=== PATIENT | male | born 1980 | race Caucasian/White ===

== ENCOUNTER 2022-10-15 15:56 | Emergency (ER) | payer MEDICARE, MEDICAID, SELFPAY ==
[2022-10-15 16:04] VITALS: BP 142/85; PULSE 84; RESP 16; TEMP 36.6; O2SAT 98
--- NOTE | 2022-10-15 16:25 | ED.GENADULT ---
HPI - General Adult General Chief complaint: Dental/Oral Stated complaint: Facial Swelling Source: patient Mode of arrival: ambulatory Limitations: no limitations History of Present Illness HPI narrative: Patient presents for evaluation of pain and swelling in the right upper part of his mouth for the last 3 days. He states he has a history of recurrent infections the affected area. He has some throbbing mild pain in the affected area. In the past he has responded favorably to amoxicillin in the past. No fever, chills, nausea, vomiting. He is not diabetic. He smokes half a pack per day. No additional complaints or concerns. Related Data Allergies Allergy/AdvReac Type Severity Reaction Status Date / Time No Known Allergies Allergy Verified 10/15/22 16:09 Review of Systems Review of Systems: CONSTITUTIONAL: Denies fever, chills, or sweats. EYES: Denies visual changes, redness, or discharge. ENT: Reports pain and swelling in right upper portion of his mouth. Denies rhinorrhea, congestion, sore throat, or otalgia. CARDIOVASCULAR: Denies chest pain, palpitations, or edema. RESPIRATORY: Denies cough or dyspnea. GASTROINTESTINAL: Denies abdominal pain, nausea, vomiting, or diarrhea. GENITOURINARY: Denies dysuria or hematuria. SKIN: Denies rash or itching. MUSCULOSKELETAL: Denies back pain, joint pain, or myalgia. NEUROLOGIC: Denies headache, numbness, dizziness, or weakness. PSYCHIATRIC: Denies anxiety or depression. PMFSH Past Medical History Medical History No pertinent past medical history Surgical History Surgical History No pertinent past surgical history Family History Family History Mother Family history non-contributory Social History Social History Smoking packs per day: 0.5 Smoking cigarettes per day: 10.0 Smoking status: Current every day smoker Gender identity (if verbalized by the patient): Male Spiritual care concerns: No Exam Narrative: GENERAL: Well-appearing, well-nourished, and in no acute distress. HEAD: Normocephalic, atraumatic. EYES: PERRLA and EOMI. ENT: Nares clear, no rhinorrhea or epistaxis. Mucous membranes moist. There is significant plaque noted around his teeth. There is an area of swelling in the soft tissues adjacent to tooth # 31. Oropharynx without tonsillar hypertrophy exudate or other lesions. Bilateral TMs pearly uribe nonbulging NECK: Supple. No adenopathy or masses. No carotid bruits or JVD CHEST: Clear to auscultation. No respiratory distress. No wheezes rales or rhonchi HEART: Regular rate and rhythm. No murmur heard. Normal peripheral pulses. ABDOMEN: Soft, nontender, nondistended, normal active bowel sounds. EXTREMITIES: Normal range of motion. No edema. SKIN: Warm, dry, no rash. NEURO: No focal deficits. Alert and oriented x3. PSYCH: Normal mood and affect. Course Course Emergency Course: This is a 42-year-old male who presented for evaluation of swelling and pain adjacent to tooth number 31. He has responded favorably in the past amoxicillin. Will treat with amoxicillin today. Advise he smoke. Ibuprofen for pain and swelling. Follow-up with dentist. Go to the ER for worsening symptoms. Patient in agreement with plan of care Level of Care: Express Care Visit Vital Signs Vital signs: Vital Signs Temperature 36.6 C 10/15/22 16:04 Pulse Rate 84 10/15/22 16:04 Respiratory Rate 16 10/15/22 16:04 Blood Pressure 142/85 H 10/15/22 16:04 Pulse Oximetry 98 10/15/22 16:04 Oxygen Delivery Room Air 10/15/22 16:04 Temperature 36.6 C 10/15/22 16:04 Pulse Rate 84 10/15/22 16:04 Respiratory Rate 16 10/15/22 16:04 Blood Pressure 142/85 H 10/15/22 16:04 Pulse Oximetry 98 10/15/22 16:
== END 2022-10-15 16:25 | disposition home or self-care (01) ==
PROVIDERS: Emergency Provider Nurse Practitioner; PCP Emergency Medicine
DX: K04.7 Periapical abscess without sinus (principal); F17.210 Nicotine dependence, cigarettes, uncomplicated
CPT/HCPCS: 99213; G0463

== ENCOUNTER 2023-01-01 08:50 | Outpatient (CLI) | payer MEDICARE, MEDICAID, SELFPAY ==
[2023-01-01 18:29] LABS: Basophils Absolute Auto 0.1 K/mm3 (0.0-0.1); Basophils Percent Auto 0.6 % (0.2-1.2); Eosinophils Absolute Auto 0.5 K/mm3 (0-0.3); Eosinophils Percent Auto 3.5 % (0-4.4); Hematocrit 54.9 % (42.0-52.0); Hemoglobin 18.3 g/dL (14.0-18.0); Immature Granulocyte Absolute 0.04 K/mm3 (0.00-0.031); Immature Granulocyte Percent A 0.3 % (0-0.5); Lymphocytes Absolute Auto 4.92 K/mm3 (0.9-3.2); Lymphocytes Percent Auto 34.4 % (18.3-44.2); Mean Corpuscular HGB Conc 33.3 g/dl (32-36); Mean Corpuscular Hemoglobin 31.5 pg (26-34); Mean Corpuscular Volume 94.5 fl (80-100); Mean Platelet Volume 10.1 fl (7.4-10.4); Monocytes Absolute Auto 1.1 K/mm3 (0.1-0.6); Monocytes Percent Auto 7.8 % (2.6-8.5); Neutrophils Absolute Auto 7.6 K/mm3 (1.3-6.7); Neutrophils Percent Auto 53.4 % (45.5-73.1); Platelet Count Result 395 k/mm3 (150-375); Red Blood Count 5.81 M/mm3 (4.6-6.20); Red Cell Distribution Width 12.9 % (11.5-14.5); White Blood Count 14.3 K/mm3 (4.5-10.0)
[2023-01-01 19:00] LABS: Alanine Aminotransferase 52 U/L (6-50); Albumin Level 4.7 g/dL (3.5-5.1); Alkaline Phosphatase 80 U/L (38-126); Anion Gap 7 mmol/L (8-16); Aspartate Amino Transferase 105 U/L (17-59); Blood Urea Nitrogen 37 mg/dL (9-20); Calcium 9.1 mg/dL (8.4-10.2); Carbon Dioxide 28 mmol/L (22-30); Chloride 103 mmol/L (98-107); Cholesterol 182 mg/dL (0-200); Estimated Glomerular Filt Rate > 60; Glucose 97 mg/dL (65-110); HDL Direct 55 mg/dL; Potassium 3.9 mmol/L (3.4-5.0); Sodium 138 mmol/L (137-145); Triglycerides 86 mg/dL (<150)
[2023-01-01 19:11] LABS: LDL Cholesterol Direct 111 mg/dL
[2023-01-09 15:51] LABS: Testosterone Free 98.4 pg/mL (35.0-155.0); Testosterone Total 589 ng/dL (250-1100)
== END 2023-01-01 08:51 | disposition home or self-care (01) ==
PROVIDERS: PCP Family Medicine; Visit Provider Nurse Practitioner
DX: N52.9 Male erectile dysfunction, unspecified (principal); F10.11 Alcohol abuse, in remission; R03.0 Elevated blood-pressure reading, without diagnosis of hypertension; Z87.820 Personal history of traumatic brain injury
CPT/HCPCS: 36415; 80053; 80061; 84402; 84403; 85025